=== PATIENT | male | born 1985 | race Caucasian/White ===

== ENCOUNTER 2025-05-07 09:36 | Emergency (ER) | payer OTHER, MEDICAID ==
[~2025-05-07] VITALS: Ht 172.7 cm; Wt 110.0 kg
[2025-05-07 09:56] VITALS: O2SAT 99
[2025-05-07] MEDS ORDERED: IBUP-2028 MT (12:19)
[2025-05-07] MEDS ORDERED: ACET-2708 MT (12:19)
[2025-05-07 12:40] VITALS: BP 125/89; PULSE 84; RESP 16; TEMP 37.1; O2SAT 96
== END 2025-05-07 12:45 | disposition home or self-care (01) ==
LOC: ER 09:36
DX: M79.605 Pain in left leg (principal); I10 Essential (primary) hypertension; Z68.36 Body mass index [BMI] 36.0-36.9, adult
CPT/HCPCS: 93971; 99284